=== PATIENT | female | born 1960 | race Caucasian/White ===

== ENCOUNTER 2021-12-24 05:16 | Emergency (ER) | payer OTHER, SELFPAY ==
--- NOTE | ~2021-12-24 | CT_ITS ---
EXAMINATION: CT brain wo con INDICATION: Right-sided numbness COMPARISON: None TECHNIQUE: Standard unenhanced head CT. The dose-length product (DLP) was 529.67 mGy-cm. The mA was a djusted according to patient size. Iterative reconstruction technique was employed. FINDINGS: There is no intracranial hemorrhage, acute infarction, or abnormal mass lesion. The ventric les are normal. There is no abnormal mass effect or midline shift. The abrams-white matter differentiat ion is normal. The basal cisterns are patent. The orbits are normal. The paranasal sinuses, mastoids and calvarium are normal. IMPRESSION: 1. No acute intracranial abnormality. Reviewed, dictated and finalized at location A.
[2021-12-24 05:22] VITALS: BP 140/56; PULSE 58; RESP 20; TEMP 36.3; O2SAT 99
--- NOTE | 2021-12-24 05:43 | ECG_ITS ---
Measurements Intervals [place] Rate: 55 P: 62 OH: 164 QRS: 59 QRSD: 144 T: 42 QT: 464 QTc: 447 Interpretive Statements SINUS BRADYCARDIA WITH SINUS ARRHYTHMIA RIGHT BUNDLE BRANCH BLOCK BASELINE ARTIFACT- II, III, AVF ABNORMAL ECG Electronically Signed On 12-24-2021 6:35:24 CDT by Justin Jeffries D.O.
--- NOTE | 2021-12-24 05:52 | ED.GENADULT ---
HPI - General Adult General Chief complaint: Unspecified Stated complaint: Right Side Numbness Time Seen by Provider: 12/24/21 05:52 Source: patient Mode of arrival: ambulatory Limitations: no limitations History of Present Illness HPI narrative: this is a 61-year-old female with no significant past medical history presents after she was woken by some mild sound and she was having some flashing lights in her right eye with right facial numbness and right arm numbness with no weakness, no neurological deficits patient did take 2 baby aspirin prior to arrival. The patient states that she has had a cervical x-ray performed by her primary care physician and stated that her neck has been diagnosed with cervical radiculopathy. Currently there is no facial weakness, no fever chills no chest pain no shortness of breath no abdominal pain. patient is a nonsmoker and social alcohol use. No immediate family with some diabetes strokes heart attacks. Onset (ago): hour(s) Location: head, right and upper extremity Radiation: non-radiation Severity: mild Quality: other ( numbness with tingling) Pain Consistency: now resolved Related Data Home Medications Medication Instructions Recorded Confirmed cetirizine [Zyrtec] 5 mg PO DAILY 12/24/21 12/24/21 prednisone 2.5 mg PO DAILY PRN 12/24/21 12/24/21 salmeterol [Serevent] 21 mcg INHALATION DAILY 12/24/21 12/24/21 Allergies Allergy/AdvReac Type Severity Reaction Status Date / Time amoxicillin Allergy Nausea Verified 12/24/21 05:49 shellfish derived Allergy Nausea Verified 12/24/21 05:49 Review of Systems Review of Systems: All systems reviewed & are unremarkable except as noted in HPI and below [facility] Past Medical History Medical History (Updated 12/24/21 @ 07:03 by Eleuterio Mcgrath MD) Seasonal allergies Exam Const: General: cooperative, healthy appearing, comfortable, no acute distress, well developed, alert, awake and Physically active HENMT: Head: normal to inspection, normocephalic and atraumatic Ears: hearing grossly normal bilaterally, external ears normal and TM's normal bilaterally General nose exam: Normal external nose present Face and sinus: normal facial exam Mouth: Yes Normal oral and palatal mucosa present Teeth and gingiva: dentition normal Throat: posterior oropharynx normal Eyes: General: appearance normal, both eyes and all related structures EOM: EOMs intact bilaterally Neck: Neck: normal visual inspection, full ROM, no lymphadenopathy, no meningeal signs, trachea midline and no JVD Thyroid: thyroid normal Carotids: normal carotid upstroke Lymphatic: no lymphadenopathy noted Resp: Effort & Inspection: normal respiratory effort and able to speak in complete sentences Auscultation: clear to auscultation bilaterally Cardio: Jugular venous distension: no JVD Palpation: normal PMI Rate: bradycardic Rhythm: regular rhythm Heart sounds: S1 normal heart sound present and S2 normal heart sound present GI: Inspection: normal to inspection : General: Yes bimanual renal exam normal bilaterally Back/Spine/Pelvis: Back: no CVA tenderness Skin: General skin exam: normal color and no rashes or lesions noted Neuro: General: oriented to person, oriented to place, oriented to time, patient oriented x3, gait normal, tone normal, moves all extremities, Normal light touch and pain sensation, no meningeal signs, no focal motor deficits and CN's II-XI intact bilaterally Psych: Appearance: grossly normal and well kempt Course Course Emergency Course: CT scan of the brain shows no acute intracranial process this was reviewed with patient, as well as EKG and lab findings. Vital Signs Vital signs: Vital Signs Temperature 36.3 C L 12/24/21 05:22 Pulse Rate 58 L 12/24/21 05:22 Respiratory Rate 20 12/24/21 05:22 Blood Pressure 140/56 L 12/24/21 05:22 Pulse Oximetry 99 12/24/21 05:22 Temperature 36.3 C L 12/24/21 05:22 Pulse Rate 58 L 12/12
[2021-12-24 06:02] LABS: Basophils Absolute Auto 0.07 K/mm3 (0.00-0.10); Basophils Percent Auto 1.5 % (0.0-1.0); Eosinophils Percent Auto 6.3 % (1.0-6.0); Hematocrit 34.6 % (35.0-49.0); Hemoglobin 11.3 g/dL (12.0-15.0); Immature Granulocyte Absolute 0.01 K/mm3 (0.00-0.00); Immature Granulocyte Percent A 0.2 % (0.0-0.0); Lymphocytes Absolute Auto 2.03 K/mm3 (1.10-4.50); Lymphocytes Percent Auto 42.9 % (18.0-42.0); Mean Corpuscular HGB Conc 32.7 g/dL (32.0-36.0); Mean Corpuscular Hemoglobin 30.1 pg (27.0-31.0); Mean Corpuscular Volume 92.3 fL (78.0-102.0); Monocytes Absolute Auto 0.47 K/mm3 (0.10-0.90); Monocytes Percent Auto 9.9 % (2.0-11.0); Neutrophils Absolute Auto 1.9 K/mm3 (1.7-7.2); Neutrophils Percent Auto 39.2 % (50.0-70.0); Platelet Count Result 252 K/mm3 (150-420); Red Blood Count 3.75 M/mm3 (4.20-5.40); Red Cell Distribution Width 13.2 % (11.6-14.4); White Blood Count 4.7 K/mm3 (4.8-10.8)
[2021-12-24 06:31] LABS: Partial Thromboplastin Time 26.9 SEC (23.90-30.70); Prothrombin Time 11.1 Seconds (9.50-12.10)
[2021-12-24 06:40] LABS: Alanine Aminotransferase 19 U/L (14-59); Albumin Level 3.9 g/dL (3.4-5.0); Alkaline Phosphatase 81 U/L (46-116); Anion Gap 6 mmol/L (8-16); Aspartate Amino Transferase 31 U/L (15-37); Bilirubin,Total 0.4 mg/dL (0.00-1.00); Blood Urea Nitrogen 17 mg/dL (7-18); Calcium 8.9 mg/dL (8.5-10.1); Carbon Dioxide 29 mmol/L (21-32); Chloride 102 mmol/L (98-108); Estimated CRCL calculation 62 ml/min; Estimated Glomerular Filt Rate > 60; Glucose 93 mg/dL (70-99); Osmolality Calculated 285 mOsm/kg (285-295); Potassium 3.9 mmol/L (3.5-5.1); Sodium 137 mmol/L (136-145); Thyroid Stimulating Hormone 5.56 uIU/mL (0.36-3.74); Total Protein 7.7 g/dL (6.4-8.2)
[2021-12-24 07:25] VITALS: BP 104/70; PULSE 55; RESP 16; TEMP 36.6; O2SAT 100
== END 2021-12-24 07:28 | disposition home or self-care (01) ==
PROVIDERS: Emergency Provider Emergency Medicine
DX: R20.0 Anesthesia of skin (principal); E03.9 Hypothyroidism, unspecified
CPT/HCPCS: 36415; 70450; 80053; 84443; 85025; 85610; 85730; 93005; 99284